=== PATIENT | female | born 1965 | race Caucasian/White ===

== ENCOUNTER 2016-10-26 17:36 | Emergency (ER) | payer OTHER | END 2016-10-26 21:01 | disposition home or self-care (01) | LOC: ER 17:36 | DX: M54.2 Cervicalgia (principal); R51 Headache; R05 Cough; K21.9 Gastro-esophageal reflux disease without esophagitis; I10 Essential (primary) hypertension; Z90.49 Acquired absence of other specified parts of digestive tract; Z87.442 Personal history of urinary calculi; Z79.899 Other long term (current) drug therapy; Z88.0 Allergy status to penicillin; Z88.1 Allergy status to other antibiotic agents; Z88.5 Allergy status to narcotic agent; Z91.012 Allergy to eggs; Z91.040 Latex allergy status; E66.9 Obesity, unspecified | CPT/HCPCS: 36415; 80307; 96374; 96375; J1885; J2060; Q9967 ==